=== PATIENT | female | born 1980 | race American Indian/Alaskan Native ===

== ENCOUNTER 2020-03-28 10:00 | Observation (INO) | payer MEDICAID, SELFPAY ==
[~2020-03-28] VITALS: Ht 152.4 cm; Wt 67.1 kg
[2020-03-28 10:41] VITALS: BP 116/74
[2020-03-28] MEDS ORDERED: LACTATED RINGERS 1,000 ML IV SCH (11:10)
[2020-03-28] MEDS ORDERED: TERBUTALINE 1 MG/ML VIAL SUBQ ONE (11:18)
[2020-03-28] MEDS: TERBUTALINE 1 MG/ML VIAL SUBQ SCH ×2 (11:23→11:56)
[2020-03-28 13:04] LABS: APPEARANCE,URINE CLEAR (CLEAR); BILIRUBIN,URINE NEGATIVE (NEGATIVE); BLOOD, URINE NEGATIVE (NEGATIVE); COLOR,URINE YELLOW (YELLOW); NITRITE, URINE NEGATIVE (NEGATIVE); UGLUCOSE NEGATIVE (NEGATIVE)
[2020-03-28 13:15] LABS: RBC,URINE 0-5 /HPF (0-5)
[2020-03-28 13:16] LABS: LEUKOCYTE ESTERASE ,URINE 1+ (NEGATIVE); WBC,URINE 0-5 /HPF (0-5)
[2020-03-28] MEDS ORDERED: PNV91TAB10 PO (14:36)
== END 2020-03-28 15:10 | disposition home or self-care (01) ==
LOC: MLD 10:00
PROVIDERS: ADMIT Obstetrics & Gynecology; ATTEND Obstetrics & Gynecology
DX: O60.03 Preterm labor without delivery, third trimester (principal); Z20.828 Contact with and (suspected) exposure to other viral communicable diseases; O24.410 Gestational diabetes mellitus in pregnancy, diet controlled; Z3A.34 34 weeks gestation of pregnancy
CPT/HCPCS: 59025; 81001; 87086; 87426; 96360; 96372; G0378; J3105